=== PATIENT | female | born 1960 | race Caucasian/White ===

== ENCOUNTER 2017-10-31 12:11 | Observation (INO) | payer OTHER, SELFPAY ==
[2017-10-31] VITALS (12 sets, daily range): BP systolic 115–142; BP diastolic 55–77; PULSE 67–113; RESP 14–18; TEMP 36.4–36.8; O2SAT 93–98; BMI 45.8
--- NOTE | 2017-10-31 | PARA_PTH ---
PATIENT: KALYAN ROBISON LOC: [facility] U#:[id number] AGE/SX: 57/F ROOM: [facility]324 RE10/31/[address]: Dr. Rodrigo Dan MD : 1960 BED: 1 DIS: 11/01/2017 SPEC #: [id number] RECD: 10/31/17 11:27 STATUS: ALE FIGUEROA #: [id number] ZINA: 10/31/17 00:[address]: Rodrigo Dan DEPT: SURGICAL PATHOLOGY RECD BY: Collette Prajapati ENTERED: 10/31/17 14:46 SP TYPE: PARATHY OTHR DR: Dr. Brandon Allen, DO Tissues: Parathyroid Procedures: Frozen Section (charge) Surgery Specimen Level IV HEADER OPERATION: Parathyroidectomy PRE-OP DIAGNOSIS: Hyperparathyroidism TISSUE SUBMITTED: Query parathyroid adenoma ? to lab 1124 FROZEN SECTION DIAGNOSIS ? Parathyroid adenoma: Parathyroid tissue (0.6 gm). SJ:jian 10/31/17 MICROSCOPIC DIAGNOSIS Parathyroid adenoma, biopsy: Hyperplastic parathyroid tissue. AM:jian 11/03/17 COMMENT Case has been reviewed in consultation with Dr. Adrian who concurs with the above diagnosis. YAZMIN:ALEX MICROSCOPIC DESCRIPTION Slides are reviewed. GROSS DESCRIPTION Received fresh for frozen section diagnosis labeled with the patient's name is a specimen designated query parathyroid adenoma. The specimen consists of a round piece of hernandez-pink soft tissue weighing 0.6 gm and measuring 1 x 1 x 0.4 cm. The specimen is bisected and submitted entirely for frozen section diagnosis in one cassette. / SJ:jian 10/31/17 TC:1 CPT: 34410, 71739
[2017-10-31 09:51] LABS: Bedside Glucose 149 mg/dL (70-110)
[2017-10-31 09:56] LABS: PTHIN 202.2 pg/mL (18.4-80.1)
[2017-10-31 11:30] LABS: PTHIN 215.2 pg/mL (18.4-80.1)
--- NOTE | 2017-10-31 12:18 | PCM.OPRPT ---
Problem List (1) Hyperparathyroidism Status: Chronic Report of Operation Date of Procedure: 10/31/17 Pre-Operative Diagnosis: Hyperparathyroidism Post-Operative Diagnosis: same Surgery/Procedure Performed:: Parathyroidectomy, secondary exploration for recurrent parathyroid adenoma Description of Surgical Findings:: Fiona is a 57-year-old female with a history of hyperparathyroidism. This is been treated previously with the exception resection of an adenoma from the right thyroid lobe for which she initially showed good clinical response. Subsequent she has had steadily increasing hyperparathyroid-ism suggesting a secondary adenoma and with endocrine neurologic consultation recurrent current surgical explanation for removal of the second adenoma was advised. The risks, alternatives, potential benefits, and complications were discussed at length and any questions answered to the patient and/or caregiver's satisfaction. Witnessed informed consent was obtained in the office, and the patient and/or caregiver was agreeable to proceed. Procedure went as follows: Procedure went as follows: The patient was identified in the preoperative holding brought to the operating room and was placed under general anesthesia and intubated. The neuro monitoring electrodes and endotracheal were then placed in the chest and confirmed to be operational in accordance with the steam tunnel feeder's directions to allow for recurrent laryngeal nerve monitoring. The neck was then prepped and draped in usual sterile fashion and the planned skin incision in marked 2 finger breaths above the sternal notch with a marking pen. The incisional line from her previous surgery was then injected with 1% lidocaine with 100,000 epinephrine for a total of 5 cc. After lying for vasoconstriction a 15 blade scalpel was used to make an incision 6 cm in length through the skin and subcutaneous tissues and platysma. A subplatysmal flap was then elevated superiorly and inferiorly to allow placement of the self-retaining thyroid retractor. The scar tissue from previous surgery and the strap muscles were then divided in the midline and beginning on the left side the thyroid lobe dissected in a sub-capsular fashion. The middle thyroid vein was individually clamped and ligated with a combination of 3-0 silk sutures. The enlarged parathyroid gland was identified along the inferior vascular pedicle, with two normal appearing glands lying along side. This was then dissected free and sent for pathologic confirmation revealing a 600 mg adenoma. The recurrent laryngeal nerve was also identified and preserved. The wound bed was then irrigated with saline solution and examined for sites of bleeding. Intraoperative PTH level was drawn, but due to labile blood pressure we elected, after consultation with anesthesia, to awaken her and await the result rather than prolong her anesthetic exposure as the offending adenoma was clearly visualized and confirmed on pathologic evaluation. No significant bleeding was encountered and a TLS drain was then placed into each tracheoesophageal groove and brought out through a separate stab incision in the neck and secured with silk sutures. The strap muscles were then approximated in the midline with a running 3-0 Vicryl suture followed by interrupted 3-0 Vicryl sutures to close the platysma and subcutaneous tissues. A 5-0 Monocryl was then used to close the skin followed by Steri-Strips completing the procedure. The patient was then returned to anesthesia where she was revived and extubated without complication having tolerated the procedure well. Type of Anesthesia:: General Anesthesiologist: Rodrigo Vaughan Specimen's removed: parathyroid adenoma, 600 mg Drains: TLS drain Estimated Blood Loss (mL): 10 mL Fluids Replaced: 1200 mL Grafts/Implants Used: none - Complications none - Admit VTE Documentation VTE Present on Admission: No VTE Mechan Device Prophylaxis: SCD's VTE Pharm Prophylaxis ordered?: No
[2017-10-31 12:26] LABS: PTHIN 87.6 pg/mL (18.4-80.1)
[2017-10-31 12:45] LABS: Bedside Glucose 133 mg/dL (70-110)
[2017-10-31 14:42] LABS: Anion Gap 6 (5-15); BUN 21 mg/dL (7-18); BUN/Creat Ratio 15.6 RATIO (10-20); Calcium,Total 10.2 mg/dL (8.5-10.1); Chloride 107 mmol/L (98-107); Creatinine, Serum 1.35 mg/dL (0.55-1.02); EST Glomerular Filtration Rate 43 mL/min (>60); Est Glom Filt Rate - Afr Amer 52 mL/min (>60); Estimated Creatinine Clearance 35.49 ml/min; Glucose 125 mg/dL (74-106); Potassium 3.9 mmol/L (3.5-5.1); Sodium Level 139 mmol/L (136-145)
[2017-10-31 16:21] LABS: Bedside Glucose 160 mg/dL (70-110)
[2017-10-31] MEDS: Naproxen 500 MG Tablet PO (17:36)
[2017-10-31 23:31] LABS: Bedside Glucose 176 mg/dL (70-110)
[2017-11-01 01:59] VITALS: PULSE 80
[2017-11-01 02:59] VITALS: BP 128/73; PULSE 76; RESP 14; TEMP 36.7; O2SAT 100; O2SAT 99
[2017-11-01 07:01] LABS: Bedside Glucose 131 mg/dL (70-110)
[2017-11-01 07:19] LABS: Calcium,Total 9.1 mg/dL (8.5-10.1)
[2017-11-01 07:24] VITALS: BP 135/71; PULSE 72; RESP 16; TEMP 36.4; O2SAT 99
[2017-11-01 07:27] VITALS: PULSE 80
[2017-11-01] MEDS: Aspirin E.C. 81 MG Tablet PO (07:45)
[2017-11-01] MEDS: Naproxen 500 MG Tablet PO (07:46)
[2017-11-01] MEDS: Rivaroxaban 20 MG Tablet PO (07:47)
[2017-11-01] MEDS: Calcium Carb/Vitamin D 1 TABLET Tablet PO (07:49)
--- NOTE | 2017-11-01 08:26 | PCM.PN.SRG ---
Subjective: She reports feeling well after parathyroidectomy, no pain or site swelling. Objective: Well appearing, incisional site without redness or collection. - Physical Exam General: Alert, Oriented x3 HEENT: Atraumatic, Normocephalic Neck: Supple, Trachea Midline, - - incision intact Lungs: Clear to auscultation, Normal air movement Cardiovascular: Regular rate Extremities: No clubbing, No cyanosis, No edema Skin: No rashes Lymphatic: No Cervical, Supraclavicular, or Inguinal Adenopathy Psych/Mental Status: Alert and oriented to time, place, person, mood and affect Vital Signs Temp Pulse Resp BP Pulse Ox 97.6 F L 80 16 135/71 H 99 11/01/17 07:24 11/01/17 07:27 11/01/17 07:24 11/01/17 07:24 11/01/17 07:24 Oxygen Flow Rate 2 Oxygen Delivery Method Nasal Cannula Weight: 115.4 kg Body Mass Index (BMI) 45.8 Finger Stick Blood Glucose 133 Intake and Output for Last 24 Hours 10/30/17 10/31/17 11/01/17 23:59 23:59 23:59 Intake Total 2100 / 2100 600 / 600 Output Total 250 / 250 500 / 500 Balance 1850 / 1850 100 / 100 Laboratory Tests Past 24 Hrs 10/31/17 10/31/17 10/31/17 09:04 10:40 14:05 Sodium 139 Potassium 3.9 Chloride 107 Carbon Dioxide 26.0 Anion Gap 6 BUN 21 H Creatinine 1.35 H Estim Creat Clear Calc 35.49 Est GFR (MDRD) Af Amer 52 L Est GFR (MDRD) Non-Af 43 L BUN/Creatinine Ratio 15.6 Glucose 125 H Calcium 10.2 H PTH Intact 202.2 H 215.2 H 10/31/17 11/01/17 11/01/17 Unknown 06:20 06:20 Sodium Potassium Chloride Carbon Dioxide Anion Gap BUN Creatinine Estim Creat Clear Calc Est GFR (MDRD) Af Amer Est GFR (MDRD) Non-Af BUN/Creatinine Ratio Glucose Calcium 9.1 PTH Intact 87.6 H Pending POC Glucose 11/01/17 10/31/17 10/31/17 06:30 22:33 16:17 POC Glucose 131 H 176 H 160 H 10/31/17 10/31/17 12:37 09:22 POC Glucose 133 H 149 H Assessment/Plan Patient is doing well after resection of parathyroid adenoma. Normal calcium level of 9.1 this AM. Intraoperative PTH level drop greater than 50 % at 10 minutes notes with level pending this AM. If this has normalized, patient will be discharged to home today as she is doing very well with minimal drain output.
[2017-11-01 09:59] VITALS: PULSE 79
[2017-11-01] MEDS: Empagliflozin 10 MG Tablet PO (10:18)
[2017-11-01] MEDS: Spironolactone 25 MG Tablet PO (10:19)
[2017-11-01] MEDS: Pantoprazole Sodium 20 MG Tablet PO (10:27)
[2017-11-01] MEDS: Furosemide 40 MG Tablet PO (10:27)
[2017-11-01] MEDS: Lisinopril 20 MG Tablet PO (10:27)
[2017-11-01 10:49] LABS: PTHIN 2.7 pg/mL (18.4-80.1)
[2017-11-01 12:06] LABS: Bedside Glucose 114 mg/dL (70-110)
[2017-11-01 12:08] VITALS: BP 148/89; PULSE 77; RESP 18; TEMP 36.3; O2SAT 98
== END 2017-11-01 12:31 | disposition home or self-care (01) ==
LOC: SDC 12:32 → MS3 11-01 04:33
PROVIDERS: Anesthesiology; Admitting Provider Otolaryngology; Visit Provider Otolaryngology
PROC: (CPT 60500; principal; 2017-10-31 09:55)
DX: D35.1 Benign neoplasm of parathyroid gland (principal); E21.3 Hyperparathyroidism, unspecified; E11.9 Type 2 diabetes mellitus without complications; R09.89 Other specified symptoms and signs involving the circulatory and respiratory systems; Z79.899 Other long term (current) drug therapy; Z79.4 Long term (current) use of insulin; G47.30 Sleep apnea, unspecified; F32.9 Major depressive disorder, single episode, unspecified; E78.5 Hyperlipidemia, unspecified; I10 Essential (primary) hypertension; Z87.891 Personal history of nicotine dependence; K21.9 Gastro-esophageal reflux disease without esophagitis; Z86.718 Personal history of other venous thrombosis and embolism
CPT/HCPCS: 60502; 36415; 80048; 82310; 82962; 83970; 88305; 88331; 99218; J3010; J7120; G0378; G0379; J2405